=== PATIENT | female | born 1960 | race Caucasian/White ===

== ENCOUNTER → 2016-09-13 | Outpatient (CLI) | payer MEDICARE ==
[~2016-09-13] MED LIST: CONSTULOSE10 GM/15 M PO; CYCLOBENZAPRINE10 MG PO; DILTIAZEM 24HR120 M1 PO; ENDOCET 10-3251 EACH PO; ESTRADIOL0.5 MG PO; ESTRODIAL PO; FOLIC ACID 1 MG1 MG PO; HYDROCHLOROTHIA25 MG PO; IMITREX50 MG PO; KLONOPIN TAB 00.5 MG PO; LAXATIVE PO; LOPRESSOR 25 MG25 MG PO; OXYCODONE HCL15 MG PO; POTASSIUM CHLO20 ME1 PO; PROPRANOLOL HCL10 MG PO; STOOL SOFTENER1 EACH PO; TRAZODONE HCL50 MG PO; VANCOCIN 125MG/2.5ML IV; VANCOMYCIN1 GM/200 M IV; XARELTO10 MG PO; ZOFRAN 4 MG TAB4 MG PO
== END ==
DX: T84.53XD Infection and inflammatory reaction due to internal right knee prosthesis, subsequent encounter (principal)
CPT/HCPCS: G0463

== ENCOUNTER → 2016-10-04 | Outpatient (CLI) | payer MEDICARE | LOC: OPSV 10-01 13:00 | DX: T84.53XD Infection and inflammatory reaction due to internal right knee prosthesis, subsequent encounter (principal) | CPT/HCPCS: G0463 ==

== ENCOUNTER → 2016-10-10 | Outpatient (CLI) | payer MEDICARE ==
[2016-10-10 10:02] LABS: RED BLOOD COUNT 4.04 M/UL (4.00-5.10); WHITE BLOOD COUNT 6.2 K/UL (4.5-11.0)
[2016-10-10 10:18] LABS: BUN/CREATININE RATIO 22 (0-10)
== END ==
LOC: OPSV2 10-09 10:00
PROVIDERS: Orthopaedic Surgery
DX: Z01.812 Encounter for preprocedural laboratory examination (principal); Z01.810 Encounter for preprocedural cardiovascular examination; T84.53XA Infection and inflammatory reaction due to internal right knee prosthesis, initial encounter
CPT/HCPCS: 36415; 80048; 85025; 86140; 93005

== ENCOUNTER → 2016-10-22 | Outpatient (CLI) | payer MEDICARE ==
[2016-10-22 10:32] LABS: BUN/CREATININE RATIO 23 (0-10)
== END ==
LOC: LAB 09:03
PROVIDERS: Orthopaedic Surgery
DX: Z01.812 Encounter for preprocedural laboratory examination (principal)
CPT/HCPCS: 36415; 80048; 86850; 86870; 86900; 86901; 86902; 86905; 86920; 86922; P9016

== ENCOUNTER 2016-10-23 08:39 | Inpatient (IN) | payer MEDICARE ==
[~2016-10-23] VITALS: Ht 157.5 cm; Wt 63.5 kg
[~2016-10-23 08:39] MED LIST changes: -CONSTULOSE10 GM/15 M PO; -ESTRADIOL0.5 MG PO; -IMITREX50 MG PO; -KLONOPIN TAB 00.5 MG PO; -POTASSIUM CHLO20 ME1 PO; -VANCOMYCIN1 GM/200 M IV; -ZOFRAN 4 MG TAB4 MG PO
[2016-10-23] MEDS ORDERED: CONSTULOSE10 GM/15 M PO (10:39)
[2016-10-23] MEDS ORDERED: ENDOCET 10-3251 EACH PO (10:40)
[2016-10-23] MEDS ORDERED: KLONOPIN TAB 00.5 MG PO (10:41)
[2016-10-23] MEDS ORDERED: POTASSIUM CHLO20 ME1 PO (10:41)
[2016-10-23] MEDS ORDERED: HYDROCHLOROTHIA25 MG PO (10:42)
[2016-10-23] MEDS ORDERED: IMITREX50 MG PO (10:43)
[2016-10-23] MEDS ORDERED: ESTRADIOL0.5 MG PO (10:48)
[2016-10-24 05:18] LABS: BUN/CREATININE RATIO 18 (0-10)
[2016-10-24 05:20] LABS: RED BLOOD COUNT 2.46 M/UL (4.00-5.10); WHITE BLOOD COUNT 6.7 K/UL (4.5-11.0)
[2016-10-24 06:11] LABS: HEMOGLOBIN 6.6 gm/dl (12.3-15.3)
[2016-10-24 17:54] LABS: HEMOGLOBIN 9.1 gm/dl (12.3-15.3)
[2016-10-25 06:00] LABS: HEMOGLOBIN 9.4 gm/dl (12.3-15.3); WHITE BLOOD COUNT 7.5 K/UL (4.5-11.0)
[2016-10-25 06:02] LABS: RED BLOOD COUNT 3.29 M/UL (4.00-5.10)
[2016-10-25 06:26] LABS: BUN/CREATININE RATIO 17 (0-10)
[2016-10-25] MEDS ORDERED: XARELTO10 MG PO (15:05)
[2016-10-25] MEDS ORDERED: ZOFRAN 4 MG TAB4 MG PO (15:05)
[2016-10-25] MEDS ORDERED: OXYCODONE HCL15 MG PO (15:06)
[2016-10-25] MEDS ORDERED: VANCOMYCIN1 GM/200 M IV (15:15)
== END 2016-10-25 17:30 | disposition home health service (06) | DRG 467 ==
LOC: M/S 08:39 → ZOBSOF 08:39 → M/S 17:26
PROVIDERS: Internal Medicine; ADMIT Orthopaedic Surgery
PROC: 0SPC08Z Removal of Spacer from Right Knee Joint, Open Approach (ICD-10-PCS; principal; 2016-10-23 11:30)
PROC: 0SRC0J9 Replacement of Right Knee Joint with Synthetic Substitute, Cemented, Open Approach (ICD-10-PCS; principal; 2016-10-23 11:30)
PROC: 30233N1 Transfusion of Nonautologous Red Blood Cells into Peripheral Vein, Percutaneous Approach (ICD-10-PCS; 2016-10-24)
DX: Z47.32 Aftercare following explantation of hip joint prosthesis (principal); D62 Acute posthemorrhagic anemia; I10 Essential (primary) hypertension; M06.9 Rheumatoid arthritis, unspecified; E03.9 Hypothyroidism, unspecified; G43.909 Migraine, unspecified, not intractable, without status migrainosus; Z79.899 Other long term (current) drug therapy
CPT/HCPCS: 36415; 73560; 76000; 80048; 85014; 85018; 85025; 87070; 97110; 97530; C1713; C1776; J1100; J1644; J1885; J2250; J2405; J2795; J3010; J3370; J7030; J7050; J7070; J7120; P9016